=== PATIENT | male | born 1950 | race Caucasian/White ===

== ENCOUNTER 2017-03-03 20:24 | Emergency (ER) | payer MEDICARE, BC ==
[2017-03-03] MEDS ORDERED: CYCLOBENZAPRINE HCL 10 MG TABLET PO ONE (20:55)
[2017-03-03] MEDS ORDERED: CYCLOBENZAPRINE HCL 10 MG TABLET ONE (20:56)
--- NOTE | 2017-03-03 21:10 | ERNOTE ---
Head Injury HPI - Narrative Date of Service: 03/03/17 - General Injury to: other - neck pain down into right arm down into right ulnar nerve. Time Seen by Provider: 03/03/17 20:34 Source: patient Exam Limitations: no limitations - Immun/Allergies/Home Medications Immunization: IMMUNIZATION HX Immunizations Up to Date Yes History of Influenza Vaccine No Allergies/Adverse Reactions: Allergies Allergy/AdvReac Type Severity Reaction Status Date / Time No Known Allergies Allergy Unverified 03/03/17 20:34 Home Medications: HOME MEDICATIONS Amino Acids 700 mg PO DAILY 03/03/17 [Last Taken Unknown] Cyclobenzaprine HCl [Flexeril] 10 mg PO TID PRN #12 tablet 03/03/17 [Last Taken Unknown] Multivitamins [Multivitamin Bethanie] 1 cap PO DAILY 03/03/17 [Last Taken Unknown] Mushroom Extract 1 tab PO DAILY 03/03/17 [Last Taken Unknown] Turmeric/Turmeric Root Extract [Turmeric 450-50 mg Capsule] 1 each PO DAILY [Last Taken Unknown] predniSONE [Prednisone] 3 tab PO DAILY 3 Days #9 tab 03/03/17 [Last Taken Unknown] - History of Present Illness Narrative: Ongoing right trapez discomfort extending down the ulnar nerve causing the 4/5 phalynx of right hand to be numb. Occurred: other - Has been going on for some time but has worsened today. Took some tylenol/ibuprofen and gabapentin 300mg PO earlier today. Severity: moderate Method of Injury: Reports: no apparent injury Associated Symptoms: Reports: denies symptoms Review of Systems - Narrative Narrative: Denies any trauma or injury. States he lifts wts 4 times weekly. States the pain worsens when his right arm is elevated right up into the trapez/scapula. Denies any other symptoms including headaches, vision changes, dyspnea, CP, or abdominal pain. Denies any weakness or limited ROM of the right arm. States he was at the chiropractor earlier today and felt better for 4 hrs but the pain returned. - Review of Systems Constitutional: Present: no symptoms reported EYE: Present: no symptoms reported ENT: Present: no symptoms reported Respiratory: Present: no symptoms reported Cardiology: Present: no symptoms reported Gastrointestinal/Abdominal: Present: no symptoms reported Musculoskeletal: Present: other - Right sided neck pain extending through trapez down into right arm. Again denies any loss of strength or sensation. Skin: Present: no symptoms reported Neurological: Present: tingling - Tingling of the 4th/5th digits of right hand Hematologic/Lymphatic: Present: no symptoms reported Psych: Present: no symptoms reported - Patient's Past Medical History Patient History - Medical: No pertinent hx Patient History - Cardiac/Respiratory: No pertinent hx Patient History - Cancer: No Hx of Cancer Patient History - Other: None - Social History Living Situations: home Psych History: No pertinent hx Smoking Status: Never smoker Alcohol Use: none Drug Use: none - Immunizations Immunizations Up to Date: Yes History of Influenza Vaccine: No Physical Exam - Physical Exam General Appearance: Present: wd/wn, alert, no apparent distress Respiratory: Present: no respiratory distress Back Exam: Present: other - No cervical point tenderness. No abnormal bony structure. Right paraspinal tenderness extending over into right trap area. Right shoulder and arm complete and full ROM. Right supervisor central supply strong. Radial pulse strong. Distal sensation intact. Neurological Exam: Present: alert, oriented, no motor/sensory deficits Skin Exam: Present: normal color, warm/dry ED Progress - Vital Signs Patient's Vital Signs:: I have reviewed the patient's vital signs. Vital Signs: Vital Signs 03/03/17 20:27 Temperature 36.9 C Pulse Rate 48 L Respiratory 18 Rate Blood Pressure 220/85 O2 Sat by Pulse 99 Oximetry Treating the BP with lorazepam 1mg PO - X-Ray X-Ray #1 X-Ray: c-spine Interpretation: Interp. by me X-ray Comments: No acute fracture. Degenerative changes present. - Progress/Reassessment Chief Complaint: Neck Pain/Injury Departure Clinical Impression: Cervical radiculopathy due to degenerative joint disease of spine - Departure Disposition: Home Follow Up Needed Condition: Stable Additional Instructions: Symptoms appear to be related to the degenerative changes in the cervical spine. Likely have some inflammation causing nerve entrapment. Will treat with a short course of steroids and muscle relaxants. Take ibuprofen 800mg every 6hrs with food for 48 hrs then as needed. Should see some improvement over the next several days. However will need to follow up with family provider for discussion of ongoing treatment and care. Also monitor blood pressure closely to determine if intervention is needed. Prescriptions: Cyclobenzaprine HCl [Flexeril] 10 mg PO TID PRN #12 tablet PRN Reason: Muscle Spasm predniSONE [Prednisone] 3 tab PO DAILY 3 Days #9 tab
[2017-03-03] MEDS ORDERED: LORazepam 1 MG TABLET PO ONE (21:28)
[2017-03-03] MEDS ORDERED: LORazepam 1 MG TABLET ONE (21:29)
[2017-03-03 22:21] VITALS: BP 188/80
[2017-03-03] MEDS ORDERED: HYDROcodone/ACETAMINOPHEN 1 EACH TABLET PO ONE (22:26)
[2017-03-03] MEDS ORDERED: HYDROcodone/ACETAMINOPHEN 1 EACH TABLET ONE (22:31)
== END 2017-03-03 23:02 | disposition home or self-care (01) ==
LOC: ER 20:24
DX: M54.12 Radiculopathy, cervical region (principal); M47.9 Spondylosis, unspecified

== ENCOUNTER 2017-05-12 22:06 | Emergency (ER) | payer MEDICARE, BC ==
--- NOTE | 2017-05-12 22:57 | ERNOTE ---
Medical Problem HPI - General Chief Complaint: Screening, Blood Pressure Time Seen by Provider: 05/12/17 22:32 Source: patient Exam Limitations: no limitations - Immun/Allergies/Home Medications Immunizations: IMMUNIZATION HX Immunizations Up to Date Yes History of Influenza Vaccine No Allergies/Adverse Reactions: Allergies No Known Allergies Allergy (Unverified 03/03/17 20:34) Home Medications: HOME MEDICATIONS Amino Acids 700 mg PO DAILY 03/03/17 [Last Taken Unknown] Multivitamins [Multivitamin Bethanie] 1 cap PO DAILY 03/03/17 [Last Taken Unknown] Mushroom Extract 1 tab PO DAILY 03/03/17 [Last Taken Unknown] Turmeric/Turmeric Root Extract [Turmeric 450-50 mg Capsule] 1 each PO DAILY [Last Taken Unknown] Amlodipine Besylate/Benazepril [Amlodipine-Benazepril 2.5-10] 10 - 20 mg PO DAILY 05/12/17 [Last Taken Unknown] Arginine HCl [l-Arginine] 1,000 mg PO DAILY 05/12/17 [Last Taken Unknown] Calcium Carbonate [Calcium] 500 mg PO DAILY 05/12/17 [Last Taken Unknown] Cholecalciferol [Vitamin D] 10,000 unit PO DAILY 05/12/17 [Last Taken Unknown] Echinacea 380 mg PO DAILY 05/12/17 [Last Taken Unknown] Gluc Jacques/Chondro Jacques A/Vit C/Mn [Glucosamine Chondroitin Tab] 1 each PO DAILY [Last Taken Unknown] Resveratrol 250 mg PO DAILY 05/12/17 [Last Taken Unknown] Ubidecarenone [Co Q-10] 200 mg PO DAILY 05/12/17 [Last Taken Unknown] Vitamin E 1,000 unit PO DAILY 05/12/17 [Last Taken Unknown] Zinc 50 mg PO DAILY 05/12/17 [Last Taken Unknown] - History of Present History Narrative: Patient was diagnosed with HTN recently on started on medication. He ran out about two weeks ago as he did not realize that he needed to get it refilled. He has not seen doctors much and the initial encounter was due to neck pain. His blood pressure has been running high again, over 200 systolic at home. He denies any symptoms currently Review of Systems - Review of Systems Constitutional: Absent: recent illness, fever EYE: Absent: vision changes ENT: Absent: nose congestion, sore throat Respiratory: Absent: shortness of breath Cardiology: Absent: chest pain Gastrointestinal/Abdominal: Absent: nausea, abdominal pain Genitourinary: Present: no symptoms reported Musculoskeletal: Absent: back pain Neurological: Absent: headache, weakness, numbness - Patient's Past Medical History Patient History - Medical: No pertinent hx Patient History - Cardiac/Respiratory: Hypertension Patient History - Cancer: No Hx of Cancer Patient History - Surgical Procedures: No surgical history Patient History - Other: None - Social History Living Situations: spouse Psych History: No pertinent hx Smoking Status: Never smoker Have you smoked in the past 12 months: No Do you dip or chew tobacco: No Alcohol Use: occasionally Drug Use: none - Immunizations Immunizations Up to Date: Yes History of Influenza Vaccine: No Physical Exam - Physical Exam General Appearance: Present: wd/wn, alert, no apparent distress Head Exam: Present: normal inspection Respiratory: Present: no respiratory distress Neurological Exam: Present: alert, oriented, normal mood/affect Skin Exam: Present: normal color, warm/dry ED Progress - Vital Signs Patient's Vital Signs:: I have reviewed the patient's vital signs. Vital Signs: Vital Signs 05/12/17 22:09 Temperature 36.6 C Pulse Rate 54 L Respiratory 16 Rate Blood Pressure 193/82 O2 Sat by Pulse 96 Oximetry - Progress/Reassessment Chief Complaint: Screening, Blood Pressure Progress Note-Subjective: 05/12/17 22:40 offered to give patient medication here. As he has not symptoms currently want to wait and refill his medications in the morning. Discussed diagnosis of HTN and need to continue on medications Departure Clinical Impression: Hypertension Qualifiers: Hypertension type: essential hypertension Qualified Code(s): I10 - Essential ( primary) hypertension - Departure Disposition: Home self-care Condition: Good Instructions: Hypertension, [id number] Additional Instructions: refill your medication AMARIS and take it as instructed call your doctor for follow up Referrals: Daphne Nichols ARNP [Primary Care Provider] -
[2017-05-14 08:28] VITALS: BP 185/70
== END 2017-05-12 22:56 | disposition home or self-care (01) ==
LOC: ER 22:06
DX: I10 Essential (primary) hypertension

== ENCOUNTER 2017-05-23 13:59 | Emergency (ER) | payer MEDICARE, BC ==
[2017-05-23 14:06] VITALS: BP 166/74
--- NOTE | 2017-05-23 14:38 | ERNOTE ---
Back Pain ER HPI Presenting Symptoms: other Time Seen by Provider: 05/23/17 14:21 Source: patient Exam Limitations: no limitations Immunizations: IMMUNIZATION HX Immunizations Up to Date Yes History of Influenza Vaccine No Hx Pneumococcal Vaccination No Allergies/Adverse Reactions: Allergies No Known Allergies Allergy (Verified 05/23/17 14:06) Home Medications: HOME MEDICATIONS Amino Acids 700 mg PO DAILY 03/03/17 [Last Taken Unknown] Multivitamins [Multivitamin Bethanie] 1 cap PO DAILY 03/03/17 [Last Taken Unknown] Mushroom Extract 1 tab PO DAILY 03/03/17 [Last Taken Unknown] Turmeric/Turmeric Root Extract [Turmeric 450-50 mg Capsule] 1 each PO DAILY [Last Taken Unknown] Amlodipine Besylate/Benazepril [Amlodipine-Benazepril 2.5-10] 10 - 20 mg PO DAILY 05/12/17 [Last Taken Unknown] Arginine HCl [l-Arginine] 1,000 mg PO DAILY 05/12/17 [Last Taken Unknown] Calcium Carbonate [Calcium] 500 mg PO DAILY 05/12/17 [Last Taken Unknown] Cholecalciferol [Vitamin D] 10,000 unit PO DAILY 05/12/17 [Last Taken Unknown] Echinacea 380 mg PO DAILY 05/12/17 [Last Taken Unknown] Gluc Jacques/Chondro Jacques A/Vit C/Mn [Glucosamine Chondroitin Tab] 1 each PO DAILY [Last Taken Unknown] Resveratrol 250 mg PO DAILY 05/12/17 [Last Taken Unknown] Ubidecarenone [Co Q-10] 200 mg PO DAILY 05/12/17 [Last Taken Unknown] Vitamin E 1,000 unit PO DAILY 05/12/17 [Last Taken Unknown] Zinc 50 mg PO DAILY 05/12/17 [Last Taken Unknown] Cyclobenzaprine HCl [Flexeril] 10 mg PO TID PRN #30 tab 05/22/17 [Last Taken Unknown] Naproxen [Naprosyn] 500 mg PO BID #20 tablet 05/22/17 [Last Taken Unknown] oxyCODONE HCL/ACETAMINOPHEN [Percocet 5 MG/325 MG] 1 tab PO Q4H PRN #30 tab 11/30 [Last Taken Unknown] Narrative: Patient moved furniture down steps four days ago, started to have pain in the right side of his neck radiating down his arm the next day, denies any other injuries or fall. He was seen in the ER yesterday and treated with naproxen and flexeril. His symptoms are not relieved and have actually gotten worse, denies any new injury or additional symptoms. He had similar symptoms once before that resolved with medical treatment. Discussed pain management, patient already took and NSAID and flexeril today, is planing on driving, will hold off on narcotics Review of Systems - Review of Systems Constitutional: Absent: recent illness, fever, chills EYE: Absent: vision changes ENT: Absent: nose congestion, sore throat Respiratory: Absent: shortness of breath, cough Cardiology: Absent: chest pain Gastrointestinal/Abdominal: Absent: nausea, abdominal pain Genitourinary: Present: no symptoms reported Musculoskeletal: Present: See HPI Neurological: Absent: headache, weakness, numbness - Patient's Past Medical History Patient History - Medical: No pertinent hx Patient History - Cardiac/Respiratory: Hypertension Patient History - Cancer: No Hx of Cancer Patient History - Surgical Procedures: No surgical history Patient History - Other: None - Social History Living Situations: home Psych History: No pertinent hx Alcohol Use: none Drug Use: none - Immunizations Immunizations Up to Date: Yes Hx Pneumococcal Vaccination: No History of Influenza Vaccine: No Physical Exam - Physical Exam General Appearance: Present: wd/wn, alert, mild distress Head Exam: Present: normal inspection Neck: Present: normal inspection, other - decreased range to turning head to right Respiratory: Present: no respiratory distress, normal breath sounds, lungs clear Cardiovascular/Chest: Present: regular rate, rhythm, no murmur Back Exam: Present: normal inspection, normal range of motion, vertebral tenderness - tender over T1 and right paraspinal muscle spasms Neurological Exam: Present: alert, oriented, normal mood/affect, no motor/ sensory deficits DTR: N=norm/NB=norm/brisk/A=abs/DD=dull/dimin/HC=hyperactive: Bicep (R): Normal Skin Exam: Present: normal color, warm/dry ED Progress - Vital Signs Patient's Vital Signs:: I have reviewed the patient's vital signs. Vital Signs: Vital Signs 05/23/17 14:02 Temperature 36.5 C Pulse Rate 45 L Respiratory 12 Rate Blood Pressure 166/74 O2 Sat by Pulse 100 Oximetry - X-Ray X-Ray #1 X-Ray: c-spine - DDD, no acute, see report Interpretation: Reviewed by me X-Ray #2 X-Ray: thoracic - DDD, see report Interpretation: Reviewed by me - Progress/Reassessment Chief Complaint: Shoulder Injury/Pain Progress Note-Subjective: 05/23/17 15:44 patient reports worsening pain, will get ride and would like pain meds now. Departure Clinical Impression: Cervical radiculopathy due to degenerative joint disease of spine - Departure Disposition: Home self-care Condition: Good Instructions: Cervical Radiculopathy, [id number] Additional Instructions: call your primary care doctor for a follow up appointment, you might need physical therapy or have further testing done Referrals: Daphne Nichols ARNP [Primary Care Provider] - Prescriptions: oxyCODONE HCL/ACETAMINOPHEN [Percocet 5 MG/325 MG] 1 tab PO Q4H PRN #30 tab PRN Reason: Pain
[2017-05-23] MEDS ORDERED: HYDROmorphone HCL 2 MG/ML VIAL IM ONE (15:43)
[2017-05-23] MEDS ORDERED: HYDROmorphone HCL 2 MG/ML VIAL ONE (15:47)
== END 2017-05-23 15:55 | disposition home or self-care (01) ==
LOC: ER 13:59
DX: I10 Essential (primary) hypertension; M47.22 Other spondylosis with radiculopathy, cervical region

== ENCOUNTER 2018-07-08 08:28 | Inpatient (IN) ==
--- NOTE | 2018-06-25 07:55 | ANES ---
Anesthesia Pre Procedure Eval HOME MEDICATIONS Multivitamins [Multivitamin Bethanie] 1 cap PO DAILY 03/03/17 [Last Taken Unknown] Mushroom Extract 1 tab PO DAILY 03/03/17 [Last Taken Unknown] Turmeric/Turmeric Root Extract [Turmeric 450-50 mg Capsule] 1 ea PO DAILY 03/03/17 [Last Taken Unknown] Vitamin E 1,000 unit PO DAILY 05/12/17 [Last Taken Unknown] oxygen-air delivery systems device See Dose Instructions .ROUTE .MEDSUPPLY #1 01/14/18 [Last Taken Unknown] B-complex with vitamin C tablet 1 tab PO DAILY 01/29/18 [Last Taken Unknown] cholecalciferol (vitamin D3) 10,000 unit capsule 10,000 unit PO DAILY 01/29/18 [Last Taken Unknown] coenzyme Q10 200 mg capsule 200 mg PO DAILY 01/29/18 [Last Taken Unknown] glucosamine HCl 1,500 mg tablet 1,500 mg PO DAILY 01/29/18 [Last Taken Unknown] losartan 100 mg tablet 100 mg PO DAILY #30 tab 01/29/18 [Last Taken Unknown] zinc 50 mg tablet 50 mg PO DAILY 01/29/18 [Last Taken Unknown] amlodipine 10 mg tablet 10 mg PO DAILY #30 tab 02/20/18 [Last Taken Unknown] Allergies/Adverse Reactions: Allergies Allergy/AdvReac Type Severity Reaction Status Date / Time No Known Allergies Allergy Verified 06/23/18 10:52 - Planned Procedure Planned Procedure: Left Arthroplasty Total Knee Medication List Reviewed:: Yes Allergies Verified: Yes Medical History (Last Reviewed 06/25/18 @ 07:54 by Gasper Naylor CRNA) Angina of effort (Acute) Hyperlipidemia (Suspected) Degenerative joint disease of knee, left (Acute) Markos presents for follow-up of left knee pain consistent with osteoarthritis. He has continued debilitating knee pain and has failed all nonoperative management including icing, NSAIDs, activity modification, injections, and passage of time. He is here to discuss total knee replacement today. I counseled him on the procedure itself, the risks involved, and the expected postoperative recovery. Risks discussed include, but are not limited to, infection, popliteal artery injury, intraoperative fracture, postoperative stiffness, persistent pain, aseptic loosening/failure, DVT/PE, wound complications, and risks with anesthesia. After discussion he wishes to proceed with a left total knee arthroplasty. Essential hypertension (Chronic) Cervical radiculopathy (Chronic) Obstructive sleep apnea on CPAP (Chronic) CPAP compliant at least 70% as of 09/30/17 Hypertension (Acute) Onset Date: Unknown No pertinent past medical history Surgical History (Last Reviewed 06/25/18 @ 07:54 by Gasper Naylor CRNA) Ankle fracture Onset Date: Unknown History of arthroscopic knee surgery Onset Date: ~1979 Dr. Manuel S/P orchiopexy Onset Date: Unknown Family History (Last Reviewed 06/25/18 @ 07:54 by Gasper Naylor CRNA) Mother FH: kidney cancer, Onset Age: 55 Father Colon cancer diagnosed in 2015 - Family Anesthesia History Family History:: no untoward family reactions to anesthesia - Airway/Neck/Teeth Teeth Condition: intact Neck Exam: full range of motion Mallampatti Score: 2 Thyromental (T-M) distance: > 6 cm Mandibulo Hyoid distance: > 3 cm - Respiratory Smoking Status: Never smoker Sleep Apnea currently treated: No Sleep Apnea by current assessment: Yes Discussed Risks/Treatment of RUBEN: Yes - Cardiovascular Cardiac History: hypertension Tolerate Activity: Fair - Anesthesia Assessment and Plan ASA Class: PS, II Anesthesia Type Plan: Spinal - lt adductor canal block for postop analgesia
[~2018-07-08 08:28] MED LIST: ROPIVACAINE HCL/PF 100 MG, EPINEPHrine 0.2 MG, KETOROLAC TROMETHAMINE 30 MG in NORMAL S... IJ PRN; TRANEXAMIC ACID 1,000 MG in NORMAL SALINE 100 ML IV PRN; ceFAZolin SODIUM 1 GM VIAL IV PRN
[2018-07-08] MEDS: RINGER'S SOLUTION,LACTATED 1,000 ML IV PRN ×2 (09:08→11:20)
--- NOTE | 2018-07-08 13:11 | ANES ---
Anesthesia Procedure Note Procedure Note: ANESTHESIA PROCEDURE NOTE Date of Procedure: 07/08/2018 Time of procedure: 10:15 AM. Performed by: Esvin Mendez CRNA, MSN [employer] Manager: Alejandrina Brambila RN. Preprocedure diagnosis: Total knee arthroplasty pain. Post procedure diagnosis: Same. Procedure: Left Adductor Canal Block. Indications: Post left total knee arthroplasty pain relief. Findings: See below. Details of the procedure: The patient was brought to OR #4 and placed in supine position. The patient's left femoral area to the knee was prepped with chlorhexidine and using ultrasound guidance the left femoral artery wasidentified at approximately the proximal one third femur. Under ultrasound guidance the saphenous nerve was approached with visualization of a 4 inch shielded block needle approaching the adductor canal just under the sartorius muscle. Once saphenous nerve was identified with proximity to the needle tip, the saphenous nerve was surrounded with 20 mL bupivacaine 0.25% with 1-200,000 epinephrine. Please see radiology/ultrasound report for details and retained images of the procedure. EBL: 0 Fluids: N/A. Specimen: N/A. Post procedure condition: The patient tolerated the procedure well. No complications were noted. Thank you for this consultation. Esvin Mendez CRNA, MSN
--- NOTE | 2018-07-08 13:12 | ANES ---
Post Anesthesia Discharge - Transfer of Care Transfer of Care handoff given to nurse: Yes - Discharge from PACU Discharge from PACU when meets criteria: Yes - Alert and comfortable.
[2018-07-08] MEDS ORDERED: ONDANSETRON HCL/PF 2 MG/ML VIAL IV PRN (13:26)
[2018-07-08] MEDS ORDERED: MAG HYDROX/ALUMINUM HYD/SIMETH 30 ML UDC PO PRN (13:26)
[2018-07-08] MEDS ORDERED: ACETAMINOPHEN 500 MG TABLET PO PRN (13:26)
[2018-07-08] MEDS ORDERED: diphenhydrAMINE HCL 50 MG/ML VIAL IV PRN (13:26)
[2018-07-08] MEDS ORDERED: MAGNESIUM HYDROXIDE 30 ML UDC PO PRN (13:26)
[2018-07-08] MEDS ORDERED: MORPHINE SULFATE 2 MG/ML DISP.SYRIN IV PRN (13:26)
--- NOTE | 2018-07-08 13:32 | ANES ---
Post Anesthesia Assessment - Vital Signs Vitals: Last Vital Signs Temp 36.4 C 07/08/18 13:25 Pulse 50 L 07/08/18 13:25 Resp 17 07/08/18 13:25 BP 118/38 07/08/18 13:25 Pulse Ox 97 07/08/18 13:25 Airway Patency: Normal - Mental Status Level Of Consciousness: Awake, Alert, Appropriate - Pain Level Pain Score: 0 - N/V Assessment Nausea/Vomiting Presence: None Dehydration:: No
[2018-07-08] MEDS: NORMAL SALINE 1,000 ML IV PRN ×2 (13:52→21:38)
--- NOTE | 2018-07-08 14:20 | OR ---
Operative Report - Dictated Report Narrative: Date: 07/08/2018 Preoperative diagnosis: Left knee degenerative joint disease. Postoperative diagnosis: Left knee degenerative joint disease. Procedure: Left total knee arthroplasty. Surgeon: Ihsan Ferguson M.D. Mainframe Software Developer: Kike Montenegro PA-C provided a set of essential, skilled, educated hands that assisted in positioning, transfer, retraction, manipulation, irrigation, closure of wounds, and placement of dressings all of which could not be provided by the available surgical crew. Anesthesia: Spinal with regional block and local periarticular joint injection. Complications: None Specimens: Bone for disposal. Estimated blood loss: Minimal. Tourniquet time: 76 Minutes at 300 millimeters of mercury. Retained implants: Depuy Attune size 8 standard lugged cemented posterior stabilized femoral component. Size 8 rotating cemented tibial platform. 8 by 6 millimeter posterior stabilized cross-linked tibial insert. 41 millimeter medialized patella button. Indications: Markos is a 67-year-old active healthy male. This patient was followed in my clinic for period of time with significant complaints of left knee pain consistent with arthritic changes. They had failed conservative measures including but not limited to activity modification, passage of time, medications, and other conservative measures. Patient wished to proceed with surgical treatment. The risks, benefits, and alternatives were discussed in clinic. The risks of , blood clots, bleeding, infection, nerve/tendon blood vessel/ injury, malposition of components, intraoperative fracture, postoperative limited range of motion, persistent pain, failure of components, and need for additional procedures. Patient wished to proceed consent was obtained after answering all questions. Procedure: After marking the correct extremity on the floor, the patient was taken to the operating room. A timeout was performed. IV antibiotics consisting of 2 g of Ancef were administered prior to the procedure. A regional followed by spinal anesthetic was induced by anesthesia. on the operative table with all bony prominences well-padded. Canales catheter was placed and a bump was placed under the operative side buttock. SCDs and MARYAM hose were utilized on the nonoperative leg. A well-padded tourniquet was applied to the operative thigh. The operative leg was then pre-scrubbed with alcohol prepped and draped in a standard sterile fashion. After exsanguinating the extremity with an Esmarch bandage, the tourniquet was inflated. After marking out the anterior knee for standard incision centered over the patella, the skin was incised and dissected down to the joint retinaculum. The joint retinaculum was marked out as well as the horizontal axis of the patella, and a standard medial parapatellar arthrotomy was then made. The most proximal aspect of the quadriceps tendon and the patella tendon insertion were protected from release. A partial synovectomy was performed as well as a resection of the infrapatellar fat pad. The distal femoral fat pad proximal to the trochlea was also resected using cautery. The soft tissues were elevated off the medial aspect of the proximal tibia using a Avila elevator ensuring that we did not transect the medial collateral ligament. Upon initial evaluation range of motion was approximately 5 degrees to 115 degrees of flexion. There were signs of advanced arthrosis in all 3 joint spaces. There were large marginal osteophytes which were removed with a rongeur. The knee was hyperflexed and the patella was tucked laterally. Protecting the surrounding soft tissues with Homans, an entry drill was placed down the femoral canal using Whitesides line for guidance into the entry point. The intramedullary femoral alignment eliana was utilized in order to cut the distal femur in 5 of valgus resecting 10 millimeters of bone. Next the distal femur was sized to a size 8. An anterior referencing guide was utilized to place the distal femoral cutting block in 3 of external rotation. This was pinned into place. The rotation was confirmed both visually and based on anatomic landmarks. The 4 in 1 cutting jig of the appropriate size was utilized in order to make all bony cuts. Retractors were utilized in order to protect surrounding soft tissues. This cut did not result in any excessive notching. We then cut the box centered over the distal femur. This allowed for resection of the anterior and posterior cruciate ligaments. I then turned my attention to the preparation of the tibia. Using an extra medullary tibial alignment eliana, 2 millimeters of bone was resected off the medial articular surface. This was made perpendicular to the mechanical axis of the joint with the alignment eliana centered over the ankle mortise. The alignment eliana was parallel to the mechanical axis, centered over the medial one third of the tibial tubercle, paralleling the anterior surface of the tibia. We then turned our attention to the remaining meniscus and soft tissues. These were removed while protecting the surrounding ligaments and soft tissues. The marginal osteophytes off the anterior, posterior, medial, lateral aspects of the femur and tibia were removed. The tibia was sized out to a size 8. Next the trial femur and a series of floating tibial inserts were utilized in order to allow for full extension and maximal flexion. It was found that a 6 millimeter insert gave the best range of motion and stability at multiple flexion points as well as at full extension there was less than 2 mm of gapping both medially and laterally. There was minimal anterior translation with the knee at 90 of flexion and no signs of being able to dislocate the knee. The patella was then prepared. The initial thickness was 26 millimeters. This was reamed down to 14 millimeters parallel to the anterior surface of the patella. It was sized out to a size 41 mm medialized patella button. This was then drilled and trialed. Without any medial restraint the patella tracked appropriately and did not sublux or dislocate. Next the tibia was drilled and punched in an externally rotated position as confirmed with a drop eliana. At this point, it was felt these were the appropriate sized implants and all trials were removed. The standard periarticular joint injection consisting of ropivacaine, Toradol, and epinephrine were injected into the periarticular joint tissues. The bony surfaces were thoroughly irrigated with a pulsatile-suction saline irrigation device. A bone plug from the prior resected anterior chamfer cut was placed into the drill hole at the distal femur. The bony surfaces were then dried in preparation for placement of the implants. The cement was vacuum mixed per the locker room clerk's instructions. The cement was placed on the dry bony surfaces and posterior aspect of the implants. The implants were impacted into place, removing all extruded cement. At this point anesthesia administered tranexamic acid per protocol intravenously. The knee was placed in extension with axial loading with the trial insert while the cement cured. A dilute 0.35% betadyne-saline solution was used to irrigate the knee and allowed to sit in the knee while the cement cured. Once the cement cured, all remaining extruded cement was removed. The knee was placed through a range of motion with the trial insert to ensure appropriate range of motion and stability. Final range of motion was approximately 0 to 130 degrees. The knee was again thoroughly irrigated with pulsatile saline lavage. The final RP polyethylene insert was then placed ensuring no retained soft tissues. The remaining periarticular joint injection was injected. The knee was then packed with lap sponges which were soaked with dilute betadyne solution and the tourniquet was let down. Pressure was held for approximately 2 minutes and then hemostasis was obtained using electrocautery to coagulate any bleeding vessels. The knee was then placed over a triangle and the arthrotomy was closed with interrupted #1 Vicryl after thoroughly irrigating the joint. The deep and subcutaneous tissues were closed with interrupted 0 and 3-0 Vicryl respectively. Skin was closed with a running subcutaneous 3-0 Monocryl and Prineo dressing. 4 x 4's, ABD, Sof-Rol, and a full leg Tyrese wrap were applied. All sponge, needle, blade, and instrument counts were correct prior to closing the wounds. Postoperative condition: The patient was awoken and transferred to the postanesthesia care unit in stable condition. Plan is to be admitted to the inpatient medical/surgical floor postoperatively for 24 hours of IV antibiotics, physical therapy, occupational therapy, and medical co-management. Patient will be weightbearing as tolerated with range of motion as tolerated. DVT prophylaxis will be with SCDs, MARYAM hose, and pharmacological anticoagulation. Anticipated hospital stay is approximately 2-4 days.
[2018-07-08] MEDS: oxyCODONE HCL/ACETAMINOPHEN 1 TAB TABLET PO PRN ×2 (15:23→19:28)
[2018-07-08] MEDS ORDERED: HYDROmorphone HCL 1 MG/ML DISP.SYRIN IV ONE (16:00)
[2018-07-08] MEDS: ceFAZolin SODIUM 2 GM in DEXTROSE 5 % IN WATER 50 ML IV SCH ×4 (16:30→23:43)
[2018-07-08] MEDS: amLODIPine BESYLATE 10 MG TABLET PO SCH (20:59)
[2018-07-08] MEDS ORDERED: SENNOSIDES/DOCUSATE SODIUM 1 TAB TABLET PO SCH (21:00)
[2018-07-09 05:14] LABS: Hematocrit 36.6 % (42.0-52.0); Hemoglobin 12.6 gm/dL (13.5-18.0); Mean Cell Volume 90.1 fl (78-100); Mean Corpuscular Hgb Conc 34.4 g/dl (32-36); Mean Platelet Volume 10.1 fl (8-11.3); Platelet Count 155 K/mm3 (150-450); Red Blood Count 4.06 M/mm3 (4.7-6.0); Red Cell Distribution Width 12.1 % (11.5-14.0); White Blood Count 8.2 K/mm3 (4.0-10.5)
[2018-07-09 05:23] LABS: Calcium * 7.8 mg/dL (7.9-10.9); Carbon Dioxide 28.9 mmol/L (24-32.6); Estimated Creat Clear 61.5; Potassium 3.9 mmol/L (3.4-4.6)
[2018-07-09] MEDS: ceFAZolin SODIUM 2 GM in DEXTROSE 5 % IN WATER 50 ML IV SCH ×2 (07:56)
--- NOTE | 2018-07-09 07:58 | PN ---
Subjective - Date and Time Seen Date: 07/09/18 Time: 07:45 Subjective Narrative: Patient reports no acute events. He notes yesterday he was able to ambulate 15 steps around his room, after he had significant increase in pain, IV pain medication was used to control the pain. Currently his pain is well controlled. Patient is sitting comfortably in the chair. Objective - Vitals Vitals: Last Vital Signs Temp 37.1 C 07/09/18 06:57 Pulse 50 L 07/09/18 06:57 Resp 16 07/09/18 06:57 BP 151/60 H 07/09/18 06:57 Pulse Ox 95 07/09/18 06:57 - Abnormal Lab Findings Abnormal Lab Findings: Abnormal Lab Results 07/09/18 07/09/18 Range/Units 05:00 05:00 RBC 4.06 L (4.7-6.0) M/mm3 Hgb 12.6 L (13.5-18.0) gm/dL Hct 36.6 L (42.0-52.0) % Random Glucose 160 H (70-110) mg/dL Calcium 7.8 L (7.9-10.9) mg/dL - Exam Constitutional: Present: Alert, Cooperative, No distress Respiratory: Present: no respiratory distress Extremity: Present: other - LLE--> bandages clean/dry/intact, sensation intact light touch, 4+/5 knee flexion and extension, mild diffuse tenderness about left knee Eye contact: Present: cooperative Thoughts: Present: normal thought pattern Cauti Physician Documentation - Urinary Catheter Management Urethral (Canales) Date of Insertion: 07/08/18 Date of Removal: 07/09/18 Time of Removal: 05:05 Assessment/Plan Plan Narrative: - 67 y/o male postop day 1 status post left total knee arthroplasty -Weightbearing as tolerated, assistance as needed -PT/OT progress as tolerated -P.o. diet as tolerate -P.o. pain medication as needed -Hemoglobin 12.6, continue to monitor -Maintain postoperative dressings in place -VTE prophylaxis: Lovenox, SCDs in bed, MARYAM hose -Disposition: Once PT goals are met, p.o. diet tolerated, pain well controlled, no other acute complications patient will be discharged home, note patient has approximately 30 steps to get into his house this will need to be addressed prior to discharge - Problems/Diagnosis (1) Status post total left knee replacement using cement Problem: Acute
[2018-07-09] MEDS: amLODIPine BESYLATE 10 MG TABLET PO SCH (08:01)
[2018-07-09] MEDS ORDERED: LOSARTAN POTASSIUM 50 MG TABLET PO SCH (09:00)
[2018-07-09] MEDS: oxyCODONE HCL/ACETAMINOPHEN 1 TAB TABLET PO PRN ×2 (10:52→16:34)
[2018-07-09] MEDS ORDERED: ENOXAPARIN SODIUM 40 MG/0.4 ML SYRG SC SCH (12:26)
--- NOTE | 2018-07-09 16:30 | DS ---
(1) Status post total left knee replacement using cement Problem: Acute Description of Stay: Patient is a 67-year-old man postop day 1 status post left total knee arthroplasty. Patient was admitted postoperatively for monitoring, physical therapy, pain control. Patient's pain is well-controlled at this time with by m outh pain medication, he is ambulated and past stairs with physical therapy, patient has had no other acute complications. Discussed with patient discharge plan to go home. Patient will follow-up postoperatively at orthopedic outpatient clinic at 2 weeks. Patient's bandages were removed, revealed a small spot of blood tinged drainage at the distal end of the bandage, it was reinforced with Dermabond without complication. Discussed with patient continue monitoring his any significant erythema or drainage he will call the orthopedic outpatient clinic. Patient's discharge instructions are as follows: -Weight-bearing as tolerated, assistance as needed -PT/OT progress as tolerated, outpatient physical therapy -By mouth diet as tolerated -By mouth pain medication -DVT prophylaxis continue Lovenox until 10 days postoperatively followed by 325 mg aspirin daily for the next 6 weeks -Maintain pernio dressing in place until follow-up in orthopedic clinic -Follow-up at 2 weeks postoperatively at orthopedic outpatient clinic Procedures Performed: see notes below List Procedures: s/p left total knee arthroplasty Results and Findings: Lab Pending Results 07/08/18 10:00: WBC Cancelled, Corrected WBC (auto) Cancelled, RBC Cancelled, Hgb Cancelled, Hct Cancelled, MCV Cancelled, MCH Cancelled, MCHC Cancelled, RDW Cancelled, Plt Count Cancelled, MPV Cancelled, Immature Gran % (Auto) Cancelled, Immature Gran # (Auto) Cancelled, Neutrophils % Cancelled, Lymphocytes % Cancelled, Monocytes % Cancelled, Eosinophils % Cancelled, Basophils % Cancelled, Nucleated RBC % Cancelled, Neutrophils # Cancelled, Lymphocytes # Cancelled, Monocytes # Cancelled, Eosinophils # Cancelled, Absolute Basophils Cancelled 07/08/18 10:00: Sodium Cancelled, Plasma Sodium Cancelled, Potassium Cancelled, Chloride Cancelled, Carbon Dioxide Cancelled, Anion Gap Cancelled, BUN Cancell ed, Creatinine Cancelled, Est GFR (Non-Af Amer) Cancelled, BUN/Creatinine Ratio Cancelled, Random Glucose Cancelled, Calcium Cancelled 07/09/18 05:00: WBC 8.2, RBC 4.06 L, Hgb 12.6 L, Hct 36.6 L, MCV 90.1, MCH 31.0, MCHC 34.4, RDW 12.1, Plt Count 155, MPV 10.1 07/09/18 05:00: Sodium 138, Plasma Sodium 139, Potassium 3.9, Chloride 103, Carbon Dioxide 28.9, Anion Gap 10.0, BUN 15, Creatinine 1.15, Est GFR (Non-Af Amer) 67, BUN/Creatinine Ratio 13.0, Random Glucose 160 H, Calcium 7.8 L Discharge Location: Home Disposition: Home self-care Condition: Good Discharge Activity: Activity as tolerated, Weight bearing Discharge Diet: General/regular food Referrals: Prem Davidson DO [Primary Care Provider] - Problem Oriented Discharge Instructions to Patient/Family: Total Knee Replacement, Care After, [id number] Print Language (Andorran or Romanian Available): Andorran Additional Patient Instructions (free text): Post-op Physical Therapy scheduled for 07/10/18 at 3:15pm at [facility]. Follow-up appointment scheduled in the office with Dr. Ferguson at 9:45am. Prescriptions (Any new or edited meds): Enoxaparin Sodium [Lovenox] 40 mg SC Q24H #9 disp.syrin oxyCODONE HCL/ACETAMINOPHEN [Percocet 5 MG/325 MG] 1 - 2 tab PO Q4H PRN #90 tab PRN Reason: Severe Pain (Pain Scale 7-10) Complete Home Medications List: Complete Home Medication List: Multivitamins [Multivitamin Bethanie] 1 cap PO DAILY 03/03/17 Mushroom Extract 1 tab PO DAILY 03/03/17 Turmeric/Turmeric Root Extract [Turmeric 450-50 mg Capsule] 1 ea PO DAILY 03/03/17 Vitamin E 1,000 unit PO DAILY 05/12/17 oxygen-air delivery systems device See Dose Instructions .ROUTE .MEDSUPPLY #1 01/14/18 B-complex with vitamin C tablet 1 tab PO DAILY 01/29/18 cholecalciferol (vitamin D3) 10,000 unit capsule 10,000 unit PO DAILY 01/29/18 coenzyme Q10 200 mg capsule 200 mg PO DAILY 01/29/18 glucosamine HCl 1,500 mg tablet 1,500 mg PO DAILY 01/29/18 losartan 100 mg tablet 100 mg PO DAILY #30 tab 01/29/18 zinc 50 mg tablet 50 mg PO DAILY 01/29/18 amlodipine 10 mg tablet 10 mg PO BID #60 tab 07/01/18 Enoxaparin Sodium [Lovenox] 40 mg SC Q24H #9 disp.syrin 07/09/18 Sennosides/Docusate Sodium [Senokot-S] 2 tab PO HS tab 07/09/18 oxyCODONE HCL/ACETAMINOPHEN [Percocet 5 MG/325 MG] 1 - 2 tab PO Q4H PRN #90 tab 07/09/18
[2018-07-09 16:37] VITALS: BP 171/64
== END 2018-07-09 17:17 | disposition home or self-care (01) | DRG 470 ==
LOC: SUR 08:28 → MS 08:28
PROVIDERS: ADMIT Orthopaedic Surgery; ATTEND Orthopaedic Surgery
CPT/HCPCS: 36415; 73560; 80048; 85025; 85027; 87081; 97110; 97116; 97161